=== PATIENT | female | born 1960 | race Caucasian/White ===

== ENCOUNTER 2020-04-25 04:13 | Emergency (ER) | payer BC, OTHER ==
[2020-04-25] MEDS ORDERED: Acetaminophen/HYDROcodone 325-5 MG Tab PO ONE (04:48)
--- NOTE | 2020-04-25 04:53 | EDM.PDOC ---
ED HPI GENERAL MEDICAL PROBLEM - General Chief Complaint: Lower Extremity Injury/Pain Stated Complaint: LEFT KNEE PAIN Time Seen by Provider: 04/25/20 04:23 Source of Information: Reports: Patient History Limitations: Reports: No Limitations - History of Present Illness INITIAL COMMENTS - FREE TEXT/NARRATIVE: Mrs. Goel is a very pleasant 59-year-old woman who now presents to the ED with left knee pain. She states that she was going up some stairs around 17:30 last night, when she felt a pop in her anteromedial left knee, and has been experiencing pain there ever since. She states that she has having difficulty sleeping because of the pain. No significant pain with bearing weight, however, there is pain with stressing of the knee. She states that she tried both ib uprofen and ice, without adequate relief. No prior left knee injury, and she is otherwise uninjured. Here in the ED, the patient's initial BP is found to be mildly elevated at 150/90, otherwise, she is hemodynamically stable, afebrile, saturating 96% on room air. Other than her left knee injury, the patient denies having a recent fever, chills, sore throat, ear pain, nasal or sinus congestion, cough, dyspnea, chest pain, palpitations, nausea, vomiting, constipation, diarrhea, abdominal pain, urinary symptoms, recent weight gain or weight loss, recent bloody bowel movements or black bowel movements, recent joint aches, headaches, or rashes. The patient's PCP is Dr. Edie Vazquez. She received an influenza vaccine this season. Left Knee Pain Score (Numeric/FACES): 10 - Related Data Allergies Allergy/AdvReac Type Severity Reaction Status Date / Time antibiotic. Allergy Anaphylactic Uncoded 04/25/20 04:35 Shock Home Meds: Home Meds Acetaminophen/HYDROcodone [[place] 325-5 MG] 1 - 2 tab PO Q6H PRN #12 tablet 04/25/20 [Rx] Past Medical History Cardiovascular History: Reports: High Cholesterol, Hypertension Musculoskeletal History: Reports: Back Pain, Chronic (lumbar stenosis) Endocrine/Metabolic History: Reports: Obesity/BMI 30+ Dermatologic History: Reports: Psoriasis - Past Surgical History HEENT Surgical History: Reports: Oral Surgery (dental extractions) Female Surgical History: Reports: Section (x 2), Tubal Ligation, Other (See Below) (Scar tissue removed from arounf fallopian tubes) Neurological Surgical History: Reports: Lumbar Spine (laminectomy) Musculoskeletal Surgical History: Reports: Arthroscopic Knee Social & Family History - Tobacco Use Tobacco Use Status *Q: Current Every Day Tobacco User Years of Tobacco use: 26 Packs/Tins Daily: 0.3 - Caffeine Use Caffeine Use: Reports: None - Alcohol Use Alcohol Use History: Yes Alcohol Use Frequency: Socially - Recreational Drug Use Recreational Drug Use: No - Living Situation & Occupation Living situation: Reports: , with Spouse Occupation: Retired Review of Systems - Review of Systems Review Of Systems: Comprehensive ROS is negative, except as noted in HPI. ED EXAM, GENERAL - Physical Exam Exam: See Below Exam Limited By: No Limitations General Appearance: Alert, WD/WN, No Apparent Distress Extremities: Other (No visible abnormality to the left knee, when compared to the right, such as swelling, erythema, ecchymosis, or abrasion. The patient notes mild tenderness to palpation of the anteromedial knee, and pain is induced in that area with attempted extension of the knee against resistance. No pain is induced with attempts at flexion of the knee against resistance. Neurovascular status of the left lower extremity is intact.) Course - Vital Signs Last Recorded V/S: Last Vital Signs Temp 37.2 C 04/25/20 04:28 Pulse 71 04/25/20 04:28 Resp 16 04/25/20 04:28 BP 150/90 H 04/25/20 04:28 Pulse Ox 96 04/25/20 04:28 - Orders/Labs/Meds Orders: Active Orders 24 hr Category Date Time Status DME for Discharge [COMM] Stat Oth 04/25/20 04:47 Ordered Meds: Medications Discontinued Medications Generic Name Dose Route Start Last Admin Trade Name Freq PRN Reason Stop Dose Admin Hydrocodone Bitart/Acetaminophen 2 tab 04/25/20 04:48 04/25/20 04:59 [place] 325-5 Mg PO 04/25/20 04:49 2 tab ONETIME ONE Administration - Re-Assessments/Exams Free Text/Narrative Re-Assessment/Exam: 04/25/20 04:48 As above, the patient appears to have strained the anteromedial aspect of her left knee. No visible abnormality, and no bony injury is suspected. I am recommending a knee immobilizer over the weekend, along with ice and ibuprofen, then have her follow-up with Dr. Johnson early this coming week. The patient would like something stronger than ibuprofen, therefore she will be given 2 tablets of [place] here in the ED, and I will discharge her home with a prescription for the same. Departure - Departure Time of Disposition: 04:49 Disposition: Home, Self-Care 01 Condition: Good Clinical Impression: Strain of left knee - Discharge Information *PRESCRIPTION DRUG MONITORING PROGRAM REVIEWED*: Not Applicable *COPY OF PRESCRIPTION DRUG MONITORING REPORT IN PATIENT HERIBERTO: Not Applicable Prescriptions: Acetaminophen/HYDROcodone [[place] 325-5 MG] 1 - 2 tab PO Q6H PRN #12 tablet PRN Reason: Pain (Severe 7-10) Instructions: Muscle Strain, [id number] Referrals: Edie Vazquez MD [Primary Care Provider] - Jorge Johnson MD [Physician] - Forms: ED Department Discharge Additional Instructions: You were seen in the emergency room after feeling a pop in your left knee when going up stairs, with pain ever since. Based on your history and physical examination, you have strained your left knee. You have been fitted with a knee immobilizer. This goes on over your slacks. Apply it every morning and remove it at bedtime. Be very careful when going up or down stairs. We recommend that you ice and rest your left knee is much as possible over the next 2 to 3 days, to help minimize swelling and pain. We recommend that you take [id number] ibuprofen, 3 tablets (600 mg) up to every 8 hours, with food, as needed for discomfort. You may take the prescription opioid [place], 1 to 2 tablets up to every 6 hours, as needed for pain not relieved by ibuprofen. If you take [place], do not drive for 12 hours afterwards. Fr[place] may cause constipation, so consider taking a stool softener. We recommend that you follow-up with the Orthopedic Surgeon Dr. Jorge Johnson at the next available appointment. Make sure that the medical office receptionist assistant understands that you are following up from the ER. If any other problems, please do not hesitate to return to the ER. Sepsis Event Note (ED) - Evaluation Sepsis Screening Result: No Definite Risk - Focused Exam Vital Signs: Vital Signs Temp Pulse Resp BP Pulse Ox 04/25/20 04:28 37.2 C 71 16 150/90 H 96 - My Orders Last 24 Hours: My Active Orders 04/25/20 04:47 DME for Discharge [COMM] Stat - Assessment/Plan Last 24 Hours: My Active Orders 04/25/20 04:47 DME for Discharge [COMM] Stat
== END 2020-04-25 05:00 | disposition home or self-care (01) ==
LOC: JD.ED 04:13
DX: S86.912A Strain of unspecified muscle(s) and tendon(s) at lower leg level, left leg, initial encounter (principal); I10 Essential (primary) hypertension; E66.9 Obesity, unspecified; F17.210 Nicotine dependence, cigarettes, uncomplicated; Z88.1 Allergy status to other antibiotic agents; X58.XXXA Exposure to other specified factors, initial encounter
CPT/HCPCS: 99283; A9270

== ENCOUNTER 2020-06-15 17:28 | Emergency (ER) | payer OTHER ==
--- NOTE | 2020-06-15 18:07 | EDM.PDOC ---
ED HPI GENERAL MEDICAL PROBLEM - General Chief Complaint: Respiratory Problem Stated Complaint: SOB Time Seen by Provider: 06/15/20 17:39 Source of Information: Reports: Patient, RN Notes Reviewed History Limitations: Reports: No Limitations - History of Present Illness INITIAL COMMENTS - FREE TEXT/NARRATIVE: Patient is a 59-year-old female who presents to the ED for her sudden onset shortness of breath. Patient notes that around 5 PM, she found it very hard to breathe. She has not had any issues like this before ever in her life. She developed chills, increased fatigue, shortness of breath, and did have a bout of diarrhea. She notes she had recent lumbar surgery done by Dr. Payton on May 12, and everything went well and had her erin out on May 25 and the site seems to be healing well in general. Patient notes that she does not go out of the house much anyway due to the ongoing COVID-19 pandemic. She notes that her daughter does come home on the weekends because she does the grocery shopping for them, but she has not been sick, has not been around anybody that has been known to be sick. Patient herself denies any underlying medical history like heart issues lung issues, diabetes. She is not obese. O2 sats are roughly 93 to 94% on room air, pulse is 95 breaths/min, temperature is 97.1 F, respiratory rate of 24, and blood pressure is 158/93. - Related Data Allergies Allergy/AdvReac Type Severity Reaction Status Date / Time antibiotic. Allergy Anaphylactic Uncoded 04/25/20 04:35 Shock Home Meds: Home Meds Acetaminophen/HYDROcodone [[place] 325-5 MG] 1 - 2 tab PO Q6H PRN #12 tablet 04/25/20 [Rx] Lisinopril/Hydrochlorothiazide [Lisinopril-Hctz 10-12.5 mg Tab] 1 tab PO DAILY 06/15/20 [History] Rosuvastatin [Crestor] 5 mg PO DAILY 06/15/20 [History] Past Medical History Cardiovascular History: Reports: High Cholesterol, Hypertension Musculoskeletal History: Reports: Back Pain, Chronic Endocrine/Metabolic History: Reports: Obesity/BMI 30+ Dermatologic History: Reports: Psoriasis - Infectious Disease History Infectious Disease History: Reports: Chicken Pox, Influenza, Measles, Mumps - Past Surgical History HEENT Surgical History: Reports: Oral Surgery Female Surgical History: Reports: Section, Tubal Ligation Neurological Surgical History: Reports: Lumbar Spine (05/12/2020) Musculoskeletal Surgical History: Reports: Arthroscopic Knee Social & Family History - Tobacco Use Tobacco Use Status *Q: Current Every Day Tobacco User Years of Tobacco use: 20 Packs/Tins Daily: 0.2 - Caffeine Use Caffeine Use: Reports: None - Recreational Drug Use Recreational Drug Use: No - Living Situation & Occupation Living situation: Reports: , with Spouse Occupation: Retired ED ROS GENERAL - Review of Systems Review Of Systems: Comprehensive ROS is negative, except as noted in HPI. ED EXAM, GENERAL - Physical Exam Exam: See Below Exam Limited By: No Limitations General Appearance: Alert, WD/WN, Mild Distress (pt does appear to be in somewhat mild distress, but can still finish sentences) Respiratory/Chest: Lungs Clear, Respiratory Distress (mild, she is taking short shallow breaths), Decreased Breath Sounds (diffuse bilaterally). No: Rales, Rhonchi, Wheezing Cardiovascular: Normal Peripheral Pulses, Regular Rate, Rhythm, No Edema Peripheral Pulses: 2+: Radial (L), Radial (R) Extremities: Normal Inspection, Normal Capillary Refill Neurological: Alert, Oriented, Normal Cognition, No Motor/Sensory Deficits Psychiatric: Normal Affect, Normal Mood Skin Exam: Warm, Dry, Intact, Normal Color, No Rash #1 Interpretation EKG Date: 06/15/20 Time: 17:55 Rhythm: NSR Rate (Beats/Min): 95 [place]: Normal P-Wave: Present QRS: Normal ST-T: Normal QT: Normal EKG Interpretation Comments: No obvious ischemia or acute ST changes noted, reviewed by myself and Dr. Felix Course - Vital Signs Last Recorded V/S: Last Vital Signs Temp 97.1 F 06/15/20 17:41 Pulse 95 06/15/20 17:41 Resp 12 06/15/20 17:41 BP 158/93 H 06/15/20 17:41 Pulse Ox 94 L 06/15/20 17:41 - Orders/Labs/Meds Orders: Active Orders 24 hr Category Date Time Status EKG Documentation Completion [RC] STAT Care 06/15/20 17:59 Active Incentive Spirometry [RT Incentive Spirometry] [RC] Care 06/15/20 21:14 Ordered Q1HWA Peripheral IV Care [RC] . DIRECTED Care 06/15/20 18:00 Active Ang Chest [CT] Stat Exams 06/15/20 19:49 Taken Chest 1V Frontal [CR] Stat Exams 06/15/20 17:59 Taken Sodium Chloride 0.9% [Normal Saline] 100 ml Med 06/15/20 20:15 Active IV ASDIRECTED Sodium Chloride 0.9% [Saline Flush] Med 06/15/20 18:00 Active 10 ml FLUSH ASDIRECTED PRN Sodium Chloride 0.9% [Saline Flush] Med 06/15/20 20:15 Active 10 ml FLUSH BOLUS Peripheral IV Insertion Adult [OM.PC] Routine Oth 06/15/20 18:00 Ordered Medication Orders Sodium Chloride (Normal Saline) 100 mls @ 60 mls/sec IV ASDIRECTED GRISEL Last Admin: 06/15/20 20:45 Dose: 60 mls/sec Documented by: JIN Sodium Chloride (Saline Flush) 10 ml FLUSH ASDIRECTED PRN PRN Reason: Keep Vein Open Last Admin: 06/15/20 20:45 Dose: 10 ml Documented by: Admin: 06/15/20 18:10 Dose: 10 ml Documented by: GARY Sodium Chloride (Saline Flush) 10 ml FLUSH BOLUS [facility] Labs: Laboratory Tests 06/15/20 06/15/20 06/15/20 Range/Units 17:45 17:45 17:45 WBC 12.94 H (3.98-10.04) K/mm3 RBC 4.52 (3.98-5.22) M/mm3 Hgb 13.2 (11.2-15.7) gm/dl Hct 41.4 (34.1-44.9) % MCV 91.6 (79.4-94.8) fl MCH 29.2 (25.6-32.2) pg MCHC 31.9 L (32.2-35.5) g/dl RDW Std Deviation 44.0 (36.4-46.3) fL Plt Count 317 (182-369) K/mm3 MPV 10.4 (9.4-12.3) fl Neutrophils % (Manual) 80 H (40-60) % Band Neutrophils % 0 (0-10) % Lymphocytes % (Manual) 13 L (20-40) % Atypical Lymphs % 3 % Monocytes % (Manual) 4 (2-10) % Eosinophils % (Manual) 0 L (0.7-5.8) % Basophils % (Manual) 0 L (0.1-1.2) Toxic Granulation Few Platelet Estimate Adequate RBC Morph Comment Normal PT 10.7 (9.7-12.0) SECONDS INR 1.00 APTT 25.9 (21.7-31.4) SECONDS D-Dimer, Quantitative 2.30 H (0.19-0.50) mg/L Sodium (136-145) mEq/L Potassium (3.5-5.1) mEq/L Chloride (98-107) mEq/L Carbon Dioxide (21-32) mEq/L Anion Gap (5-15) BUN (7-18) mg/dL Creatinine (0.55-1.02) mg/dL Est Cr Clr Drug Dosing mL/min Estimated GFR (MDRD) (>60) mL/min BUN/Creatinine Ratio (14-18) Glucose (80-115) mg/dL Lactic Acid (0.4-2.0) mmol/L Calcium (8.5-10.1) mg/dL Magnesium (1.8-2.4) mg/dl Ferritin (8-252) ng/ml Total Bilirubin (0.2-1.0) mg/dL AST (15-37) U/L ALT (14-59) U/L Alkaline Phosphatase (46-116) U/L Lactate Dehydrogenase (81-234) U/L Troponin I (0.00-0.056) ng/mL C-Reactive Protein 1.0 (<1.0) mg/dL NT-Pro-B Natriuret Pep (0-125) pg/mL Total Protein (6.4-8.2) g/dl Albumin (3.4-5.0) g/dl Globulin gm/dL Albumin/Globulin Ratio (1-2) Influenza Type A RNA (NEGATIVE) Influenza Type B RNA (NEGATIVE) SARS-CoV-2 RNA (EARL) (NEGATIVE) 06/15/20 06/15/20 06/15/20 Range/Units 17:45 17:45 17:45 WBC (3.98-10.04) K/mm3 RBC (3.98-5.22) M/mm3 Hgb (11.2-15.7) gm/dl Hct (34.1-44.9) % MCV (79.4-94.8) fl MCH (25.6-32.2) pg MCHC (32.2-35.5) g/dl RDW Std Deviation (36.4-46.3) fL Plt Count (182-369) K/mm3 MPV (9.4-12.3) fl Neutrophils % (Manual) (40-60) % Band Neutrophils % (0-10) % Lymphocytes % (Manual) (20-40) % Atypical Lymphs % % Monocytes % (Manual) (2-10) % Eosinophils % (Manual) (0.7-5.8) % Basophils % (Manual) (0.1-1.2) Toxic Granulation Platelet Estimate RBC Morph Comment PT (9.7-12.0) SECONDS INR APTT (21.7-31.4) SECONDS D-Dimer, Quantitative (0.19-0.50) mg/L Sodium 138 (136-145) mEq/L Potassium 3.8 (3.5-5.1) mEq/L Chloride 100 (98-107) mEq/L Carbon Dioxide 28 (21-32) mEq/L Anion Gap 13.8 (5-15) BUN 15 (7-18) mg/dL Creatinine 0.9 (0.55-1.02) mg/dL Est Cr Clr Drug Dosing 70.98 mL/min Estimated GFR (MDRD) > 60 (>60) mL/min BUN/Creatinine Ratio 16.7 (14-18) Glucose 110 (80-115) mg/dL Lactic Acid (0.4-2.0) mmol/L Calcium 9.3 (8.5-10.1) mg/dL Magnesium 2.1 (1.8-2.4) mg/dl Ferritin 132 (8-252) ng/ml Total Bilirubin 0.3 (0.2-1.0) mg/dL AST 11 L (15-37) U/L ALT 14 (14-59) U/L Alkaline Phosphatase 86 (46-116) U/L Lactate Dehydrogenase 168 (81-234) U/L Troponin I < 0.017 (0.00-0.056) ng/mL C-Reactive Protein (<1.0) mg/dL NT-Pro-B Natriuret Pep 82 (0-125) pg/mL Total Protein 8.5 H (6.4-8.2) g/dl Albumin 4.0 (3.4-5.0) g/dl Globulin 4.5 gm/dL Albumin/Globulin Ratio 0.9 L (1-2) Influenza Type A RNA (NEGATIVE) Influenza Type B RNA (NEGATIVE) SARS-CoV-2 RNA (EARL) (NEGATIVE) 06/15/20 06/15/20 Range/Units 18:20 18:35 WBC (3.98-10.04) K/mm3 RBC (3.98-5.22) M/mm3 Hgb (11.2-15.7) gm/dl Hct (34.1-44.9) % MCV (79.4-94.8) fl MCH (25.6-32.2) pg MCHC (32.2-35.5) g/dl RDW Std Deviation (36.4-46.3) fL Plt Count (182-369) K/mm3 MPV (9.4-12.3) fl Neutrophils % (Manual) (40-60) % Band Neutrophils % (0-10) % Lymphocytes % (Manual) (20-40) % Atypical Lymphs % % Monocytes % (Manual) (2-10) % Eosinophils % (Manual) (0.7-5.8) % Basophils % (Manual) (0.1-1.2) Toxic Granulation Platelet Estimate RBC Morph Comment PT (9.7-12.0) SECONDS INR APTT (21.7-31.4) SECONDS D-Dimer, Quantitative (0.19-0.50) mg/L Sodium (136-145) mEq/L Potassium (3.5-5.1) mEq/L Chloride (98-107) mEq/L Carbon Dioxide (21-32) mEq/L Anion Gap (5-15) BUN (7-18) mg/dL Creatinine (0.55-1.02) mg/dL Est Cr Clr Drug Dosing mL/min Estimated GFR (MDRD) (>60) mL/min BUN/Creatinine Ratio (14-18) Glucose (80-115) mg/dL Lactic Acid 0.9 (0.4-2.0) mmol/L Calcium (8.5-10.1) mg/dL Magnesium (1.8-2.4) mg/dl Ferritin (8-252) ng/ml Total Bilirubin (0.2-1.0) mg/dL AST (15-37) U/L ALT (14-59) U/L Alkaline Phosphatase (46-116) U/L Lactate Dehydrogenase (81-234) U/L Troponin I (0.00-0.056) ng/mL C-Reactive Protein (<1.0) mg/dL NT-Pro-B Natriuret Pep (0-125) pg/mL Total Protein (6.4-8.2) g/dl Albumin (3.4-5.0) g/dl Globulin gm/dL Albumin/Globulin Ratio (1-2) Influenza Type A RNA Negative (NEGATIVE) Influenza Type B RNA Negative (NEGATIVE) SARS-CoV-2 RNA (EARL) Negative (NEGATIVE) Meds: Medications Generic Name Dose Route Start Last Admin Trade Name Freq PRN Reason Stop Dose Admin Sodium Chloride 100 mls @ 60 mls/sec 06/15/20 20:15 06/15/20 20:45 Normal Saline IV 60 mls/sec ASDIRECTED GRISEL Administration Sodium Chloride 10 ml 06/15/20 18:00 06/15/20 20:45 Saline Flush FLUSH 10 ml ASDIRECTED PRN Administration Keep Vein Open Sodium Chloride 10 ml 06/15/20 20:15 Saline Flush FLUSH BOLUS GRISEL Discontinued Medications Generic Name Dose Route Start Last Admin Trade Name Freq PRN Reason Stop Dose Admin Iopamidol 100 ml 06/15/20 20:05 06/15/20 20:45 Isovue-370 (76%) IVPUSH 06/15/20 20:06 100 ml ONETIME ONE Administration Lorazepam 0.5 mg 06/15/20 21:14 Ativan PO 06/15/20 21:15 ONETIME ONE - Re-Assessments/Exams Free Text/Narrative Re-Assessment/Exam: 06/15/20 18:07 Patient presents to the ED for sudden onset shortness of breath. We will get laboratory evaluation, chest x-ray, and a Covid/flu swab for evaluation. 06/15/20 19:44 Patient's laboratory evaluation demonstrates mild elevation in her white count, with 80% neutrophils. The patient's D-dimer is elevated at 2.3. Metabolic panel is essentially unremarkable, chest x-ray also shows no signs of consolidation or pneumonia-like process at this time. We are still awaiting Covid/flu results, likely will do CT angio to evaluate for pulmonary embolus. 06/15/20 21:15 CTA is negative for pulmonary embolus, there is fine linear scarring/plate atelectasis at the bases, which could account for the possibility of her low oxygen saturations. Patient is still somewhat tachypneic, and looks to be in no worse distress than when she came in. There may be a aspect of anxiety with this, I did go over the clinical findings with Dr. Leonard, and Dr. Page for the possibility of a knobs admission due to the elevated D-dimer and her dyspnea. Dr. Leonard did not believe she would need hospital admission, as we ruled out the possibility of a PE, and believes that this also has an aspect of anxiety to do with it, Dr. Page did agree and states there is no obvious reason for observation admission, he recommends doing I-S, and trying some Ativan. I have ordered this and I will go talk with the patient and have her return to the ER if things change overnight but I will have her do a close follow-up with her regular provider tomorrow to make sure that everything is getting better. There is a possibility that this could indeed be COVID-19, and that we just did not catch it on the swab today. Departure - Departure Time of Disposition: 21:22 Disposition: Home, Self-Care 01 Condition: Good Clinical Impression: Suspected 2019 novel coronavirus infection Dyspnea Qualifiers: Dyspnea type: shortness of breath Qualified Code(s): R06.02 - Shortness of breath; R06.00 - Dyspnea, unspecified; R06.01 - Orthopnea - Discharge Information *PRESCRIPTION DRUG MONITORING PROGRAM REVIEWED*: No *COPY OF PRESCRIPTION DRUG MONITORING REPORT IN PATIENT HERIBERTO: No Instructions: Shortness of Breath, Adult, [id number] Referrals: Edie Vazquez MD [Primary Care Provider] - Forms: ED Department Discharge Additional Instructions: You were seen in the ER today for your shortness of breath. Your chest x-ray showed no signs of pneumonia at this time, your CT to check for a blood clot in your lungs was negative for any sign of blood clot. Your oxygen levels while being observed in the ER, were anywhere from 93-94% on room air. This is acceptable at this time. At this time we did test you for COVID-19. Your rapid Covid screen was negative at today's visit however these are not perfect test, it is very likely that this still could be early COVID-19, and that we just did not catch it on the swab t kay. We ask that you self-quarantine and limit your exposure to others. Highly recommend that you monitor your symptoms at home, and do close follow-up with your regular care provider, tomorrow or the next day, and possibly get retested for COVID-19 in a few days time. Please try to increase your oral fluid intake, and eat multiple small meals throughout the day, to keep yourself healthy. You need to keep yourself nourished in order to fight off this disease. You can try a liquid diet like gatorade/powerade as well to get your electrolytes. You may take 500 mg Tylenol every hours 6 hours for pain/fever relief. Do not exceed 4000 mg Tylenol in a 24-hour time span. However, running a fever is your body's natural response to illness, and it allows the body to develop antibodies to disease, we are recommending trying to limit the use of Tylenol as much as possible to allow your body's natural immune response. Recommend you obtain a pulse oximeter and monitor your oxygen levels at home, you should place the monitor on your finger, and sit in a calm, quiet position for a few minutes and then record the number that is on the screen. If this consistently below 90% on room air without movement, this would be cause for concern to come back to the hospital for further management of your COVID-19 disease. You were given an incentive spirometer, which should help your oxygen levels, you will need to do 10 deep breaths every hour while awake to help prevent a pneumonia, or other worsening lung issues. Sepsis Event Note (ED) - Evaluation Sepsis Screening Result: Possible Sepsis Risk - Focused Exam Vital Signs: Vital Signs Temp Pulse Resp BP Pulse Ox 06/15/20 17:41 97.1 F 95 12 158/93 H 94 L - My Orders Last 24 Hours: My Active Orders 06/15/20 17:59 EKG Documentation Completion [RC] STAT Chest 1V Frontal [CR] Stat 06/15/20 18:00 Peripheral IV Care [RC] . DIRECTED Sodium Chloride 0.9% [Saline Flush] 10 ml FLUSH ASDIRECTED PRN Peripheral IV Insertion Adult [OM.PC] Routine 06/15/20 19:49 Ang Chest [CT] Stat 06/15/20 20:15 Sodium Chloride 0.9% [Normal Saline] 100 ml IV ASDIRECTED Sodium Chloride 0.9% [Saline Flush] 10 ml FLUSH BOLUS 06/15/20 21:14 Incentive Spirometry [RT Incentive Spirometry] [RC] Q1HWA - Assessment/Plan Last 24 Hours: My Active Orders 06/15/20 17:59 EKG Documentation Completion [RC] STAT Chest 1V Frontal [CR] Stat 06/15/20 18:00 Peripheral IV Care [RC] . DIRECTED Sodium Chloride 0.9% [Saline Flush] 10 ml FLUSH ASDIRECTED PRN Peripheral IV Insertion Adult [OM.PC] Routine 06/15/20 19:49 Ang Chest [CT] Stat 06/15/20 20:15 Sodium Chloride 0.9% [Normal Saline] 100 ml IV ASDIRECTED Sodium Chloride 0.9% [Saline Flush] 10 ml FLUSH BOLUS 06/15/20 21:14 Incentive Spirometry [RT Incentive Spirometry] [RC] Q1HWA
[2020-06-15] MEDS: Sodium Chloride 0.9% 10 ML Syringe FLUSH PRN ×2 (18:10→20:45)
[2020-06-15 19:21] LABS: CORONAVIRUS COVID-19 NAA NEGATIVE (NEGATIVE)
[2020-06-15] MEDS ORDERED: Iopamidol 755 Mg/ML 100 ML Bottle IVPUSH ONE (20:05)
[2020-06-15] MEDS ORDERED: Sodium Chloride 0.9% 100 ML IV SCH (20:15)
[2020-06-15] MEDS ORDERED: Sodium Chloride 0.9% 10 ML Syringe FLUSH SCH (20:15)
[2020-06-15] MEDS ORDERED: LORazepam 0.5 MG Tab PO ONE ×2 (21:14→21:52)
--- NOTE | 2020-06-16 08:12 | CR ---
Chest: Portable view of the chest was obtained. Comparison: No prior chest imaging is available other than subsequent CT chest study performed on the same day. Findings: Heart size and mediastinum are within normal limits. Lungs are clear with no acute parenchymal change. Old healed rib fractures are seen within the right upper chest wall. Impression: 1. Findings as noted above. 2. Nothing acute is appreciated on portable chest x-ray. Diagnostic code #2
--- NOTE | 2020-06-16 08:25 | CT ---
CT chest Technique: Multiple axial sections through the chest were obtained. Intravenous contrast was utilized. Reconstructed coronal and sagittal images were obtained. Findings: Thoracic aorta shows mild atherosclerotic change with no aneurysm. No mediastinal adenopathy or hilar adenopathy is seen. No pericardial thickening is identified. Small hiatal hernia is noted. There is a small cyst partially visualized within the mid left kidney measuring about 1 cm. No axillary adenopathy is appreciated. Lung window settings were reviewed. No acute parenchymal change is appreciated within either lung. Minimal bibasilar atelectasis is noted. No pleural effusions or pneumothorax is appreciated. Bone window settings were reviewed which show several old healed bilateral rib fractures (worse on the right side) with bridging callus. Scattered disc space narrowing and endplate spurring is noted within the spine. Impression: 1. Several findings within the abdomen believed to be incidental. Minimal bibasilar atelectasis. 2. Nothing acute is appreciated on CT study of the chest. Diagnostic code #2 I agree with preliminary report from [facility], finalized on 06/15/20, 10:00 PM [employer] [employer]
== END 2020-06-15 22:16 | disposition home or self-care (01) ==
LOC: JD.ED 17:28
DX: R06.02 Shortness of breath (principal); E78.00 Pure hypercholesterolemia, unspecified; I10 Essential (primary) hypertension; E66.9 Obesity, unspecified; F17.210 Nicotine dependence, cigarettes, uncomplicated; Z68.32 Body mass index [BMI] 32.0-32.9, adult; Z20.828 Contact with and (suspected) exposure to other viral communicable diseases; Z88.1 Allergy status to other antibiotic agents; Z79.899 Other long term (current) drug therapy
CPT/HCPCS: 0240U; 36415; 71045; 71275; 80053; 82728; 83605; 83615; 83735; 83880; 84484; 85007; 85027; 85379; 85610; 85730; 86140; 93005; 99285; A9270; Q9967; 93010; 99284